=== PATIENT | male | born 1995 | race Caucasian/White ===

== ENCOUNTER → 2016-06-18 | Outpatient (CLI) | payer BC, OTHER ==
--- NOTE | 2016-06-18 14:26 | DIAGNOSTIC IMAGING REPORT ---
LEFT ANKLE MIN 3 VIEWS CLINICAL HISTORY: LEFT ANKLE PAIN COMPARISON STUDY: None. FINDINGS: 3 views of the left ankle and standing view of the bilateral ankles. There is soft tissue swelling within the left ankle. Small well-corticated ossific densities adjacent to the medial and lateral malleolus are consistent with old avulsion injuries. The talar dome appears intact. No acute fracture or dislocation within the left ankle. The ankle mortise is maintained. There is focal smooth cortical thickening within the mid shaft of the left fibula. IMPRESSION: 1. No acute fracture or dislocation within the left ankle. 2. Left ankle soft tissue swelling. 3. Old, small avulsion injuries within the left medial lateral malleoli. 4. Smooth focal cortical thickening within the mid shaft of the left fibula. This could be due to an old, healed fracture. Clinical correlation recommended to assess for pain and to exclude the less likely possibility of a stress related injury. Electronically signed by: Andrew Croft M.D. 06/18/2016 2:25 PM Dictated Date/Time: 06/18/2016 2:21 PM
== END | disposition home or self-care (01) ==
LOC: C.RDSM 10:34
PROVIDERS: ATTEND Internal Medicine
DX: M25.572 Pain in left ankle and joints of left foot (principal)

== ENCOUNTER → 2016-09-16 | Outpatient (CLI) | payer BC, OTHER ==
--- NOTE | 2016-09-16 13:39 | DIAGNOSTIC IMAGING REPORT ---
LEFT HIP UNILATERAL MIN 2 VIEWS CLINICAL HISTORY: LEFT HIP PAIN pain COMPARISON: None. DISCUSSION: The bones and joint spaces appear intact. There is no evidence of fracture, dislocation or bony disease. There is no evidence for soft tissue swelling. IMPRESSION: Negative study. Electronically signed by: Shaun Mcneill M.D. 09/16/2016 1:38 PM Dictated Date/Time: 09/16/2016 1:38 PM
== END | disposition home or self-care (01) ==
LOC: C.RDSM 13:56
PROVIDERS: ATTEND Internal Medicine
DX: Z02.5 Encounter for examination for participation in sport (principal); M25.552 Pain in left hip